=== PATIENT | female | born 1980 | race Caucasian/White ===

== ENCOUNTER 2017-08-07 17:55 | Emergency (ER) | payer OTHER ==
[2017-08-07 18:00] VITALS: TEMP 97.9
--- NOTE | 2017-08-07 18:14 | EDPHY ---
H & P Stated Complaint: LLQ x1 hr Time Seen by Provider: 08/07/17 18:11 HPI/ROS: HPI: This is a 37-year-old female who presents with Chief Complaint: Periumbilical and left lower quadrant pain Location: Periumbilical and left lower quadrant Quality: pain Duration: 1 hour Signs and Symptoms: no fever, no nausea, no vomiting, no hematemesis, no blood in stool, no abdominal bloating, no diarrhea, no back pain, no urinary symptoms , no vaginal bleeding/discharge, no indigestion, no chest pain, no shortness of breath Timing: Sudden, improving Severity: Moderate Context: Patient's last menstrual period was 2-3 weeks ago presents with left of her umbilicus that is nonradiating in nature. Patient reports that she had similar discomfort but was in the left lower quadrant approximately a month ago. She was seen by her OBGYN in a pelvic ultrasound was ordered and per patient it was unremarkable. She denies any fever/urinary symptoms/nausea/ vomiting/diarrhea. She had denies any recent exercise, injury. She was simply standing in her kitchen making dinner when the pain started. She reports that the pain at lasted approximately 1 hr and she has no discomfort upon arrival to the emergency room. She was eating and drinking normally today. Modifying Factors: None Comment: ROS: see HPI Constitutional: No fever, no chills, no weight loss Eyes: No blurred vision Respiratory: No shortness of breath, no cough Cardiovascular: No chest pain, no palpitations Gastrointestinal: No nausea, no vomiting, no diarrhea, no hematemesis, no blood in stool Genitourinary: No dysuria, no blood in urine Extremities: No myalgias, no edema Neurologic: No weakness, no numbness Skin: No rashes, no petechiae Hematologic: No bruising, no bleeding MEDICAL/SURGICAL/SOCIAL HISTORY: Medical/surgical history: 2 toe surgeries 2013 & 2014, no problems w/ anesthesia, high cholersterol Social history: CONSTITUTIONAL: Extremely well-appearing adult white female, nontoxic, awake and alert, no obvious distress HEENT: Atraumatic and normocephalic, PERRL, EOMI. Tympanic membranes clear. Oropharynx clear, no exudate and moist pink mucosa. Airway patent. No lymphadenopathy. No meningismus. Cardiovascular: Normal S1/S2, regular rate, regular rhythm, without murmur rub or gallop. PULMONARY/CHEST: Symmetrical and nontender. Clear to auscultation bilaterally. Good air movement. No accessory muscle usage. ABDOMEN: Soft, nondistended, mild to the left of the umbilicus reproducible tenderness, no rebound, no guarding, no peritoneal signs, no masses or organomegaly. No CVAT. No pulsatile masses appreciated. EXTREMITIES: 2/2 pulses, strength 5/5, no deformities, no clubbing, no cyanosis or edema. NEUROLOGICAL: no focal neuro deficits. GCS 15. SKIN: Warm and dry, no erythema. no rash. Good capillary refill. Source: Patient Exam Limitations: No limitations - Personal History LMP (Females 10-55): 15-21 Days Ago Current Tetanus/Diphtheria Vaccine: Yes Current Tetanus Diphtheria and Acellular Pertussis (TDAP): Yes Tetanus Vaccine Date: WITHIN 10 YRS - Medical/Surgical History Hx Asthma: No Hx Chronic Respiratory Disease: No Hx Diabetes: No Hx Cardiac Disease: No Hx Renal Disease: No Hx Cirrhosis: No Hx Alcoholism: No Hx HIV/AIDS: No Hx Splenectomy or Spleen Trauma: No Other PMH: 2 toe surgeries 2012 & 2013, no problems w/ anesthesia, high cholersterol - Social History Smoking Status: Former smoker Constitutional: Initial Vital Signs Temperature (C) 36.6 C 08/07/17 17:57 Heart Rate 83 08/07/17 17:57 Respiratory Rate 18 08/07/17 17:57 Blood Pressure 138/81 H 08/07/17 17:57 O2 Sat (%) 99 08/07/17 17:57 Allergies/Adverse Reactions: iodine [Iodine] Allergy (Unknown, Verified 01/06/13 16:34) ITCHY ENVIRONMENTAL Allergy (Mild, Uncoded 01/06/13 16:34) RUNNY NOSE Home Medications: Medication Instructions Recorded Adderall 10 mg Tablet 5 - 10 mg PO PRN 07/03/16 Fish Oil 4 cap PO DAILY 07/03/16 1 tab PO DAILY 07/03/16 Probiotic 1 cap PO DAILY 07/03/16 Zantac 75 mg PO PRN 07/03/16 Ibuprofen [Motrin (*)] 600 mg PO Q6HRS PRN #0 tab 07/05/16 Simethicone [Gas Relief] 180 mg PO Q6 PRN #12 capsule 08/07/17 Medical Decision Making - Diagnostics Imaging Results: Imaging Impressions Abdomen CT 08/07/17 18:09 Impression: 1. Focal calcification involve the posterior aspect of the right common iliac artery suggesting early atherosclerosis versus prior trauma. 2. Otherwise normal CT appearance of the abdomen and pelvis without evidence of appendicitis, diverticulitis, peritoneal free fluid. Results called to Concepcion Garcia PA-C, at 7:15 PM. ED Course/Re-evaluation: Labs, urinalysis, CT abdomen and pelvis scan ordered Per patient she had a pelvic ultrasound approximately 1 month ago from her her OBGYN and she politely declines repeating this test in the emergency room. Vital signs reviewed upon arrival and within normal limits. Patient currently denies pain. 185: Labs reviewed and grossly unremarkable. Urinalysis shows no signs of infection/hematuria. Called by radiologist who advised that CT abdomen and pelvis scan shows no signs of appendicitis, diverticulitis, obstruction, pancreatitis, pyelonephritis. Does show some calcification in the right iliac artery that the patient needs to be notified of and I did. Patient reports that she is supposed to be taking a statin due to her family history of coronary artery disease. She stopped taking it when she was with her daughter who is now 1 years old. Given simethicone with adequate relief. This patient was seen under the supervision of my primary supervising physician. I evaluated care for this patient independently. Differential Diagnosis: Abdominal pain including but not limited to appendicitis, cholecystitis, diverticulitis, ovarian cyst, ovarian torsion, gastritis and urinary tract infection. - Data Points Laboratory Results: Laboratory Results 08/07/17 18:15 08/07/17 18:15 08/07/17 08/07/17 08/07/17 18:25 18:15 18:15 WBC RBC Hgb Hct MCV MCH MCHC RDW Plt Count MPV Neut % (Auto) Lymph % (Auto) [place] % (Auto) Eos % (Auto) Baso % (Auto) Nucleat RBC Rel Count Absolute Neuts (auto) Absolute Lymphs (auto) Absolute Monos (auto) Absolute Eos (auto) Absolute Basos (auto) Absolute Nucleated RBC Immature Gran % Immature Gran # Sodium 141 mEq/L mEq/L (135-145) Potassium 3.9 mEq/L mEq/L (3.5-5.2) Chloride 102 mEq/L mEq/L (97-110) Carbon Dioxide 24 mEq/l mEq/l (22-31) Anion Gap 15 mEq/L mEq/L (8-16) BUN 12 mg/dL mg/dL (7-23) Creatinine 0.7 mg/dL mg/dL (0.6-1.0) Estimated GFR > 60 Glucose 85 mg/dL mg/dL (70-100) Calcium 9.9 mg/dL mg/dL (8.5-10.4) Total Bilirubin 0.3 mg/dL mg/dL (0.1-1.4) Conjugated Bilirubin 0.2 mg/dL mg/dL (0.0-0.5) Unconjugated Bilirubin 0.1 mg/dL mg/dL (0.0-1.1) AST 20 IU/L IU/L (14-46) ALT 28 IU/L IU/L (9-52) Alkaline Phosphatase 81 IU/L IU/L (38-126) Total Protein 7.0 g/dL g/dL (6.3-8.2) Albumin 4.5 g/dL g/dL (3.5-5.0) Lipase 84 IU/L IU/L (23-300) Beta HCG, Qual NEGATIVE Urine Color YELLOW Urine Appearance CLEAR Urine pH 6.0 (5.0-7.5) Ur Specific [place] 1.005 (1.002-1.030) Urine Protein NEGATIVE (NEGATIVE) Urine Ketones TRACE H (NEGATIVE) Urine Blood NEGATIVE (NEGATIVE) Urine Nitrate NEGATIVE (NEGATIVE) Urine Bilirubin NEGATIVE (NEGATIVE) Urine Urobilinogen NEGATIVE EU EU (0.2-1.0) Ur Leukocyte Esterase NEGATIVE (NEGATIVE) Urine Glucose NEGATIVE (NEGATIVE) 08/07/17 18:15 WBC 5.64 10^3/uL 10^3/uL (3.80-9.50) RBC 4.07 10^6/uL L 10^6/uL (4.18-5.33) Hgb 13.5 g/dL g/dL (12.6-16.3) Hct 38.7 % % (38.0-47.0) MCV 95.1 fL fL (81.5-99.8) MCH 33.2 pg pg (27.9-34.1) MCHC 34.9 g/dL g/dL (32.4-36.7) RDW 12.4 % % (11.5-15.2) Plt Count 235 10^3/uL 10^3/uL (150-400) MPV 9.3 fL fL (8.7-11.7) Neut % (Auto) 59.4 % % (39.3-74.2) Lymph % (Auto) 34.8 % % (15.0-45.0) [place] % (Auto) 4.1 % L % (4.5-13.0) Eos % (Auto) 0.4 % L % (0.6-7.6) Baso % (Auto) 1.1 % % (0.3-1.7) Nucleat RBC Rel Count 0.0 % % (0.0-0.2) Absolute Neuts (auto) 3.36 10^3/uL 10^3/uL (1.70-6.50) Absolute Lymphs (auto) 1.96 10^3/uL 10^3/uL (1.00-3.00) Absolute Monos (auto) 0.23 10^3/uL L 10^3/uL (0.30-0.80) Absolute Eos (auto) 0.02 10^3/uL L 10^3/uL (0.03-0.40) Absolute Basos (auto) 0.06 10^3/uL 10^3/uL (0.02-0.10) Absolute Nucleated RBC 0.00 10^3/uL 10^3/uL (0-0.01) Immature Gran % 0.2 % % (0.0-1.1) Immature Gran # 0.01 10^3/uL 10^3/uL (0.00-0.10) Sodium Potassium Chloride Carbon Dioxide Anion Gap BUN Creatinine Estimated GFR Glucose Calcium Total Bilirubin Conjugated Bilirubin Unconjugated Bilirubin AST ALT Alkaline Phosphatase Total Protein Albumin Lipase Beta HCG, Qual Urine Color Urine Appearance Urine pH Ur Specific [place] Urine Protein Urine Ketones Urine Blood Urine Nitrate Urine Bilirubin Urine Urobilinogen Ur Leukocyte Esterase Urine Glucose Departure - Departure Disposition: Home, Routine, Self-Care Clinical Impression: Abdominal gas pain, Atherosclerosis of right iliac artery Condition: Good Instructions: Gas and Bloating (ED), Carotid Artery Disease (DC), Low Fat Diet (ED) Additional Instructions: Take Simethicone/Mylicon as needed for gas pain. Your right iliac artery show some mild calcification consistent with atherosclerosis. Please start taking your statin again due to your family history. Referrals: Rachana Vasquez MD [Primary Care Provider] - As per Instructions Prescriptions: Simethicone [Gas Relief] 180 mg PO Q6 PRN #12 capsule PRN Reason: Gas
[2017-08-07 18:30] LABS: PLATELET COUNT 235 10^3/uL (150-400)
[2017-08-07] MEDS ORDERED: IOPAMIDOL (ISOVUE-300) 100 ML BTL ONE (18:48)
[2017-08-07] MEDS ORDERED: SIMETHICONE 80 MG TAB CHEW PO ONE (19:30)
[2017-08-07 19:48] VITALS: BP 118/85; PULSE 72; RESP 16; O2SAT 95
== END 2017-08-07 19:49 | disposition home or self-care (01) ==
DX: R14.1 Gas pain (principal); I70.8 Atherosclerosis of other arteries; Z87.891 Personal history of nicotine dependence
CPT/HCPCS: Q9967

== ENCOUNTER → 2018-03-16 | Outpatient (CLI) | payer OTHER | LOC: FIMAGING 08:50 | PROVIDERS: ATTEND Hospitalist | DX: O09.522 Supervision of elderly multigravida, second trimester (principal); O99.280 Endocrine, nutritional and metabolic diseases complicating pregnancy, unspecified trimester; Z3A.14 14 weeks gestation of pregnancy ==

== ENCOUNTER → 2018-05-10 | Outpatient (CLI) | payer OTHER | LOC: FIMAGING 09:26 | PROVIDERS: ATTEND Hospitalist | DX: O09.522 Supervision of elderly multigravida, second trimester (principal); Z3A.20 20 weeks gestation of pregnancy ==

== ENCOUNTER 2018-09-17 09:00 | Inpatient (IN) | payer OTHER ==
[2018-09-20] MEDS ORDERED: OLIVE OIL 118 ML BTL MISC PRN (06:44)
[2018-09-20] MEDS ORDERED: EPSOM SALT 454 GM TP PRN (06:44)
[2018-09-20] MEDS ORDERED: OXYTOCIN/RINGERS LACTATE 1,000 ML IV PRN (06:44)
[2018-09-20] MEDS ORDERED: IBUPROFEN 600 MG TAB PO PRN (06:44)
[2018-09-20] MEDS ORDERED: LIDOCAINE 1% 300 MG/30 ML SDV SC PRN (06:44)
[2018-09-20] MEDS ORDERED: MISOPROSTOL 200 MCG TAB PR PRN (06:44)
[2018-09-20] MEDS ORDERED: PENICILLIN G POTASSIUM 5,000,000 UNIT in D5W 150 ML IV ONE ×2 (06:44→08:15)
[2018-09-20 07:22] LABS: PLATELET COUNT 172 10^3/uL (150-400)
[2018-09-20] MEDS ORDERED: LR 500 ML IV PRN (07:45)
[2018-09-20] MEDS ORDERED: OXYTOCIN/RINGERS LACTATE 500 ML IV SCH (08:00)
[2018-09-20] MEDS: LR 1,000 ML IV PRN (08:39)
--- NOTE | 2018-09-20 09:02 | GHP ---
[f rep st] HISTORY AND PHYSICAL DATE OF ADMISSION: 09/20/2018 ADMITTING DIAGNOSES: 1. Intrauterine at 39 weeks and 3 days. 2. Elective induction of labor. HISTORY OF PRESENT ILLNESS: The patient is a 38-year-old 3, para 1-0-1- 1 with an estimated due date 09/24/2018 per ultrasound at 6 weeks. The patient presents for an elective induction of labor and states she is having irregular contractions. Denies any leakage of fluid or vaginal bleeding and states good movement is noted. There has been a question of an unstable lie over the past few weeks with increased amniotic fluid. The patient was examined at 38 weeks and found to be 2cm, 80%, -2, and ballotable. The patient has good care at [facility], [place] and presented in her first trimester. is complicated by advanced maternal age with negative NIPT. A level 2 scan with MFM was normal. The patient has a history of familial hypercholesterolemia and saw [facility] in August 2017.; she had an EKG which was negative for ischemia; an echo was unremarkable; left ventricular ejection fraction was 60% to 70% percent; stress echocardiogram was unremarkable. Patient has no history of cardiac catheterization and atherosclerosis diagnosis by positive calcium score. The patient has a history of a thyroid nodule and was seen by Endo February 2018. Nodule appeared slightly larger on followup ultrasound and ultrasound surveillance was done by Endo. First trimester TSH was low at 0.3, consistent with a first-trimester and repeat TSH in second trimester was 0.58. The patient has a history of a LEEP, and a term delivery after LEEP. The patient developed anemia of , and tolerating iron. She had a growth ultrasound done at 32 weeks, with an estimated weight in 72nd percentile and upper normal PREM of 20.5. GBS culture is positive. Patient did receive flu vaccine as well as Tdap. PAST OBSTETRIC HISTORY: In 06/2016, she had a viable female infant born at 40 weeks, via uncomplicated vaginal delivery, weighing 6 pounds 5 ounces; she was induced and pushed for 3 hours. In December 2017, she had an SAB at 7-1/2 weeks. PAST GYNECOLOGIC HISTORY: Age of menarche 12. Cycles are irregular. She conceived during her first cycle after SAB; unknown LMP. The patient has a history of abnormal Pap smears and had a LEEP in 2006 secondary to KHADIJAH II. Subsequent Pap smears have been normal. The patient denies a history of exposure to any sexually transmitted diseases. CURRENT MEDICATIONS: Include vitamins, vitamin B complex, fish oil, probiotics, iron. ALLERGIES: Iodine, rash. PAST MEDICAL HISTORY: Cervical dysplasia, hypercholesterolemia diagnosed 18 years of age, thyroid nodule diagnosed in 2013, GERD, history of urinary tract infections, migraine headaches, anxiety, depression, and ADD. SURGICAL HISTORY: Right big toe surgery x2, dental implants, and wisdom teeth extraction. FAMILY HISTORY: Mother: Triple bypass at 38 years of age and anxiety. Father : Stent placement secondary to cardiac disease, type 2 diabetes and renal cancer. Maternal grandmother: Dementia, Alzheimer's. Paternal grandfather: Lung cancer secondary to smoking. Brother: Skin cancer, melanoma. SOCIAL HISTORY: Patient is and lives with her and their daughter. She is a homemaker. She is a former smoker and discontinued tobacco in 2011, but she smoked from 16 years of age to 31 years of age, a half pack per day. Denies any alcohol, tobacco or illicit drug use currently. REVIEW OF SYSTEMS: Ten-point review of systems negative. Pertinent positives noted in the HPI. LABS: First trimester H and H, 13.8 and 39.5, platelets 271. Blood type O positive, antibody negative. RPR nonreactive. Rubella immune. Hepatitis B surface antigen negative. HIV negative. Trio screen negative in . Standard panel negative. First trimester TSH 0.30, free T4 0.93. Second trimester TSH 0.58, free T4 0.76. Urine culture and UA negative. Pap smear negative with negative HPV 08/21/2017. Gonorrhea and chlamydia cultures negative 02/23/2018. Single AFP negative. Innatal screen negative. Third trimester H and H, 12.12 and 35, platelets 199. One-hour Glucola 107. GBS is positive. Varicella immune. Parvovirus is nonimmune. PHYSICAL EXAMINATION: VITAL SIGNS: On admission, vital signs are stable. Patient is afebrile at 36.6, heart rate 103, respirations 16, blood pressure 118 /80. GENERAL: Patient is a well nourished, well developed female. Alert and oriented x3. No apparent distress. SKIN: War, dry and without rash. NEUROLOGIC: Grossly intact. CARDIOVASCULAR: Regular rate and rhythm. LUNGS: Clear to auscultation bilaterally. ABDOMEN: Gravid, soft, nontender. PELVIC EXAM: 2 cm dilated, 70%, -3, ballotable, intact. EXTREMITIES: Normal to inspection without calf tenderness or edema. Bedside ultrasound confirms cephalic presentation. heart tones: Category 1 tracing with baseline 130 beats per minute. Positive accelerations. No decelerations. Moderate variability. On [place], no contractions noted. ASSESSMENT AND PLAN: The patient is a 38-year-old, 3, para 1-0-1-1 at 39 weeks 3 days for an elective induction. 1. Admit to Labor and Delivery. 2. Will start Pitocin per protocol since favorable cervix. 3. GBS is positive, will start penicillin for GBS prophylaxis. 4. Patient desires an epidural for pain control. 5. Anticipate . /[id number]/MODL MTDD
[2018-09-20] MEDS ORDERED: PENICILLIN G POTASSIUM 2,500,000 UNIT in D5W 150 ML IV SCH (10:45)
--- NOTE | 2018-09-20 12:51 | OBPROG ---
Labor Progress Note Assessment/Plan: Assessment: 38 y/o @ 39 3/7 weeks for elective IOL GBS pos. Plan: Continue current management Pitocin at 14 mu/min, cont per protocol s/p first dose PCN at 0930; next dose due at 1330 No cervical exam done at this time Not picking up ctx's on toco, but pt states more painful at this time FHTs - Cat I tracing Will reassess in a few hours and attempt AROM and placement of IUPC Pt desires an epidural for pain control 09/20/18 12:58 Subjective/Intrapartum Course: 09/20/18 12:51 Pt is eating lunch. She states ctx's are more painful. Denies any LOF. Good FM noted. Objective: 09/20/18 06:40 Patient ABO/Rh O POSITIVE 09/20/18 06:40 - Contraction Pattern Assessment Current Contraction Pattern: Irregular (not really picking up any ctx's) - FHR Assessment Twin A FHR (bpm): 130 FHR Pattern Variability: Moderate FHR Category: 1 - AP Antepartum Course: 09/20/18 12:53 AMA with neg NIPT and normal Level II u/s High cholesterol and familial atherosclerosis - off statin now x 2.5 years; negative Cardio work-up with EKG, stress echo-avoid fluid overload and extremes in BP KHADIJAH II - s/p LEEP Thyroid nodule-followed by Endo with u/s surveillance GERD Anxiety/Depression/ADD - no meds GBS positive Oxytocin Orders Assessment - Pre-Induction/Augmentation Assessment Gestational Age: 39 week(s) and 3 day(s) ICD10 Worksheet Patient Problems: Problems Problem Status Onset term induction Acute
[2018-09-20] MEDS: PENICILLIN G POTASSIUM 2,500,000 UNIT in D5W 150 ML IV SCH ×2 (13:48→17:40)
[2018-09-20] MEDS ORDERED: LIDOCAINE 1% 300 MG/30 ML SDV ONE (13:59)
[2018-09-20] MEDS ORDERED: OLIVE OIL 118 ML BTL MISC ONE (14:00)
[2018-09-20] MEDS ORDERED: MISOPROSTOL 200 MCG TAB ONE (14:00)
[2018-09-20] MEDS ORDERED: TERBUTALINE SULFATE 1 MG/ML VIAL ONE (14:00)
[2018-09-20] MEDS ORDERED: AMMONIA AROMATIC 1 EACH AMP IH ONE (14:00)
[2018-09-20] MEDS ORDERED: OXYTOCIN 10 UNIT/ML VIAL ONE (14:00)
--- NOTE | 2018-09-20 15:58 | OBPROG ---
Labor Progress Note Assessment/Plan: Assessment: 38 y/o @ 39 3/7 weeks for elective IOL GBS pos Plan: Continue current management Pitocin at 20 mu/min at this time, will increase if ctx's space out s/p 2 doses of PCN SVE: 2/80/-3, head is ballotable; unable to AROM at this time On toco, ctx's q 2-3min, they palpate mod FHTs - Cat I tracing Recommend pt continue to ambulate Will reassess in a few hours 09/20/18 15:59 Subjective/Intrapartum Course: 09/20/18 12:51 Pt is eating lunch. She states ctx's are more painful. Denies any LOF. Good FM noted. 09/20/18 16:00 Pt has been up ambulating and states ctx's are getting more painful-she is breathing through them. Objective: 09/20/18 06:40 Patient ABO/Rh O POSITIVE 09/20/18 06:40 - SVE Dilation (cm): 2 Effacement (%): 80 Station: -3 - Contraction Pattern Assessment Current Contraction Pattern: Regular (q 2-3 min) - FHR Assessment Goode FHR (bpm): 130 FHR Pattern Variability: Moderate FHR Category: 1 - AP Antepartum Course: 09/20/18 12:53 AMA with neg NIPT and normal Level II u/s High cholesterol and familial atherosclerosis - off statin now x 2.5 years; negative Cardio work-up with EKG, stress echo-avoid fluid overload and extremes in BP KHADIJAH II - s/p LEEP Thyroid nodule-followed by Endo with u/s surveillance GERD Anxiety/Depression/ADD - no meds GBS positive Oxytocin Orders Assessment - Pre-Induction/Augmentation Assessment Gestational Age: 39 week(s) and 3 day(s) ICD10 Worksheet Patient Problems: Problems Problem Status Onset Encounter for elective induction of labor Acute term induction Acute - ICD10 Problem Qualifiers (1) Encounter for elective induction of labor
--- NOTE | 2018-09-20 19:36 | OBPROG ---
Labor Progress Note Assessment/Plan: Assessment: 38 y/o @ 39 3/7 weeks for elective IOL GBS pos Plan: Pitocin is at 22 mu/min at this time with no cervical change noted all day long Unable to AROM since head is still ballotable s/p 3 doses of PCN FHTs - Cat I tracing and reassuring Had a long discussion with pt and spouse regarding options of turning off the Pitocin and having her sleep over night and restarting Pitocin in the morning versus discharge home since elective IOL but risk of cord prolapse with SROM Do not recommend continuing with Pitocin at this time secondary to increase risk of PCS Will turn off Pitocin for now and d/c PCN NST prior to bed Plan to restart Pitocin in am at 0600 as well as PCN for GBS prophylaxis 09/20/18 19:29 Subjective/Intrapartum Course: 09/20/18 12:51 Pt is eating lunch. She states ctx's are more painful. Denies any LOF. Good FM noted. 09/20/18 16:00 Pt has been up ambulating and states ctx's are getting more painful-she is breathing through them. 09/20/18 19:36 Pt states ctx's were painful about an hour ago and now are barely there. Denies any LOF. Good FM noted. They have the kit for cord blood collection in the room. Objective: 09/20/18 06:40 Patient ABO/Rh O POSITIVE 09/20/18 06:40 - SVE Dilation (cm): 2 Effacement (%): 80 Station: -3 Membranes: Intact - Contraction Pattern Assessment Current Contraction Pattern: Regular (q 2-3 min) - FHR Assessment Goode FHR (bpm): 140 FHR Pattern Variability: Moderate FHR Category: 1 - AP Antepartum Course: 09/20/18 12:53 AMA with neg NIPT and normal Level II u/s High cholesterol and familial atherosclerosis - off statin now x 2.5 years; negative Cardio work-up with EKG, stress echo-avoid fluid overload and extremes in BP KHADIJAH II - s/p LEEP Thyroid nodule-followed by Endo with u/s surveillance GERD Anxiety/Depression/ADD - no meds GBS positive Oxytocin Orders Assessment - Pre-Induction/Augmentation Assessment Gestational Age: 39 week(s) and 3 day(s) ICD10 Worksheet Patient Problems: Problems Problem Status Onset Encounter for elective induction of labor Acute term induction Acute - ICD10 Problem Qualifiers (1) Encounter for elective induction of labor
[2018-09-20] MEDS ORDERED: diphenhydrAMINE 25 MG CAP PO PRN (21:34)
--- NOTE | 2018-09-20 21:39 | OBPROG ---
Labor Progress Note Assessment/Plan: Assessment: 38 y/o @ 39 3/7 weeks for elective IOL GBS pos Plan: Pt is no longer having any ctx's since Pitocin turned off Long discussion with pt that since she is going to be here overnight, recommend further ripening with Cytotec so as to help with dilation when Pitocin is started in the morning; pt agrees with the plan Continuous EFM Will give Benadryl to help with sleep If she becomes active, will start PCN for GBS prophylaxis 09/20/18 21:35 Subjective/Intrapartum Course: 09/20/18 12:51 Pt is eating lunch. She states ctx's are more painful. Denies any LOF. Good FM noted. 09/20/18 16:00 Pt has been up ambulating and states ctx's are getting more painful-she is breathing through them. 09/20/18 19:36 Pt states ctx's were painful about an hour ago and now are barely there. Denies any LOF. Good FM noted. They have the kit for cord blood collection in the room. 09/20/18 21:37 Pt is no longer feeling any ctx's. Objective: 09/20/18 06:40 Patient ABO/Rh O POSITIVE 09/20/18 06:40 - SVE Membranes: Intact - AP Antepartum Course: 09/20/18 12:53 AMA with neg NIPT and normal Level II u/s High cholesterol and familial atherosclerosis - off statin now x 2.5 years; negative Cardio work-up with EKG, stress echo-avoid fluid overload and extremes in BP KHADIJAH II - s/p LEEP Thyroid nodule-followed by Endo with u/s surveillance GERD Anxiety/Depression/ADD - no meds GBS positive Oxytocin Orders Assessment - Pre-Induction/Augmentation Assessment Gestational Age: 39 week(s) and 3 day(s) ICD10 Worksheet Patient Problems: Problems Problem Status Onset Encounter for elective induction of labor Acute term induction Acute - ICD10 Problem Qualifiers (1) Encounter for elective induction of labor
[2018-09-20] MEDS: MISOPROSTOL 25 MCG CAP PO SCH (21:59)
[2018-09-21] MEDS: MISOPROSTOL 25 MCG CAP PO SCH ×2 (04:21→08:32)
--- NOTE | 2018-09-21 08:34 | OBPROG ---
Labor Progress Note Assessment/Plan: Assumed care from Dr. Guidry at 0700. Assessment:38 at 39w4d, has been here for elective IOL - had pitocin for about 12 hours, then 2 doses of misoprostil overnight, with no cervical change. Recommended considering stopping the process and going home and coming back in spontaneous labor, or attempting the induction process again in a few days or a week. Discussed if not ready to go into labor, could be increasing risk for section. Plan: Pt and discussed, and pt would like to proceed with attempting induction. Callision transcervical balloon catheter placed digitally, with sterile gloves. 70ml in uterine balloon and 20 ml in vaginal balloon. Pt tolerated well. Will start pitocin as discussed. Parul Porter MD, [facility] 09/21/18 08:17 Subjective/Intrapartum Course: 09/20/18 12:51 Pt is eating lunch. She states ctx's are more painful. Denies any LOF. Good FM noted. 09/20/18 16:00 Pt has been up ambulating and states ctx's are getting more painful-she is breathing through them. 09/20/18 19:36 Pt states ctx's were painful about an hour ago and now are barely there. Denies any LOF. Good FM noted. They have the kit for cord blood collection in the room. 09/20/18 21:37 Pt is no longer feeling any ctx's. 09/21/18 08:34 Pt slept overnight, did not feel contractions despite bein given misoprostil x 2. No LOF. Good FM. Objective: 09/20/18 06:40 Patient ABO/Rh O POSITIVE 09/20/18 06:40 36.3 16 80 110/61 gen - pleasant, NAD abd - soft, gravid, NT US done - cephalic, currently DESTINEY, MVP = 8.23 SVE 2 / 70 / ballotable - SVE Dilation (cm): 2 Effacement (%): 75 Station: -3 (ballotable) Membranes: Intact - Contraction Pattern Assessment Current Contraction Pattern: Regular (q 2-3 min), Other (Specify) (no contractions) - FHR Assessment Goode FHR (bpm): 125 FHR Pattern Variability: Moderate FHR Category: 1 - Procedures Non-surgical Procedures: Other (Specify) (transcervical Cook Balloon catheter placed, 70mlU, 20 ml v) - AP Antepartum Course: 09/20/18 12:53 AMA with neg NIPT and normal Level II u/s High cholesterol and familial atherosclerosis - off statin now x 2.5 years; negative Cardio work-up with EKG, stress echo-avoid fluid overload and extremes in BP KHADIJAH II - s/p LEEP Thyroid nodule-followed by Endo with u/s surveillance GERD Anxiety/Depression/ADD - no meds GBS positive Oxytocin Orders Assessment - Pre-Induction/Augmentation Assessment Gestational Age: 39 week(s) and 3 day(s) ICD10 Worksheet Patient Problems: Problems Problem Status Onset Encounter for elective induction of labor Acute term induction Acute
[2018-09-21] MEDS: LR 1,000 ML IV PRN (08:41)
[2018-09-21] MEDS: PENICILLIN G POTASSIUM 2,500,000 UNIT in D5W 150 ML IV SCH ×4 (08:42→20:31)
[2018-09-21] MEDS ORDERED: fentaNYL 100 MCG/2 ML INJ ONE (13:35)
[2018-09-21] MEDS ORDERED: fentaNYL 2MCG/ML/BUP 0.1% RTU 100 ML BAG EP ONE (13:36)
[2018-09-21] MEDS ORDERED: PHENYLEPHRINE HCL 100 MCG/ML SYR ONE (13:37)
--- NOTE | 2018-09-21 13:38 | OBPROG ---
Labor Progress Note Assessment/Plan: Assumed care from Dr. Guidry at 0700. Assessment:38 at 39w4d, has been here for elective IOL - had pitocin for about 12 hours, then 2 doses of misoprostil overnight, with no cervical change. Recommended considering stopping the process and going home and coming back in spontaneous labor, or attempting the induction process again in a few days or a week. REviewed upper limits of normal amniotic fluid by both PREM and MVP. Discussed if not ready to go into labor, could be increasing risk for section. Plan: Pt and discussed, and pt would like to proceed with attempting induction. [employer] transcervical balloon catheter placed digitally, with sterile gloves. 70ml in uterine balloon and 20 ml in vaginal balloon. Pt tolerated well. Will start pitocin as discussed. Parul Porter MD, [facility] 09/21/18 08:17 A/P: 38 at 39w4d, undergoing elective IOL, requesting epidural due to pain with contractions. Adequate contraction pattern with pitocin at 7miu/hr. Unable to remove uterine balloon intact - will leave in place for now and recheck after epidural in place. Parul Porter MD, [facility] 09/21/18 13:37 Subjective/Intrapartum Course: 09/20/18 12:51 Pt is eating lunch. She states ctx's are more painful. Denies any LOF. Good FM noted. 09/20/18 16:00 Pt has been up ambulating and states ctx's are getting more painful-she is breathing through them. 09/20/18 19:36 Pt states ctx's were painful about an hour ago and now are barely there. Denies any LOF. Good FM noted. They have the kit for cord blood collection in the room. 09/20/18 21:37 Pt is no longer feeling any ctx's. 09/21/18 08:34 Pt slept overnight, did not feel contractions despite bein given misoprostil x 2. No LOF. Good FM. 09/21/18 13:40 Pt is quite uncomfortable now with contractions, requesting an epidural. No LOF , though has been having some bloody show. Objective: 09/20/18 06:40 Patient ABO/Rh O POSITIVE 09/20/18 06:40 - SVE Dilation (cm): 3 Effacement (%): 75 Station: -3 Membranes: Intact - Contraction Pattern Assessment Current Contraction Pattern: Regular (q 2-3 min) - Procedures Non-surgical Procedures: Other (Specify) (transcervical Cook Balloon catheter placed, 70mlU, 20 ml v) - AP Antepartum Course: 09/20/18 12:53 AMA with neg NIPT and normal Level II u/s High cholesterol and familial atherosclerosis - off statin now x 2.5 years; negative Cardio work-up with EKG, stress echo-avoid fluid overload and extremes in BP KHADIJAH II - s/p LEEP Thyroid nodule-followed by Endo with u/s surveillance GERD Anxiety/Depression/ADD - no meds GBS positive Oxytocin Orders Assessment - Pre-Induction/Augmentation Assessment Indication: induction of labor Presentation: Vertex, Right Occiput Anterior Gestational Age: 39 week(s) and 3 day(s) Gestational Age Determined By: Last Menstral Period Estimated Weight: 4307-2203 Membrane Status: Intact Current Sterile Vaginal Exam (SVE): /ballotable Current Contraction Pattern: Regular - Cornejo's Score Dilation: 3-4cm Effacement: 80+ Station: -3 Cervix: Medium Cervix Position: Anterior Cornejo Score Total: 8 - Induction/Augmentation Consent Risks/Benefits of Procedure Reviewed/Pt Agrees to Proceed: Yes ICD10 Worksheet Patient Problems: Problems Problem Status Onset Encounter for elective induction of labor Acute term induction Acute
[2018-09-21] MEDS ORDERED: PHENYLEPHRINE HCL 100 MCG/ML SYR IVP PRN (14:01)
[2018-09-21] MEDS ORDERED: NALOXONE HCL 0.4 MG/ML INJ IVP PRN (14:01)
--- NOTE | 2018-09-21 14:04 | PDANEPAE ---
ANE History of Present Illness 38 year old in active labor ANE Past Medical History - Pulmonary History Hx Oxygen in Use at Home: No Hx Sleep Apnea: No - Endocrine History Hx Diabetes: No - Chronic Pain History Chronic Pain: No ANE Review of Systems Review of systems is: negative Review of Systems: ANE Patient History - Allergies Allergies/Adverse Reactions: iodine [Iodine] Allergy (Unknown, Verified 01/06/13 16:34) ITCHY ENVIRONMENTAL Allergy (Mild, Uncoded 01/06/13 16:34) RUNNY NOSE - Home Medications Home medications: home medication list seen and reviewed Home Medications: Adderall 10 mg Tablet 5 - 10 mg PO PRN 07/03/16 [Last Taken 06/27/16 07:00] Fish Oil 4 cap PO DAILY 07/03/16 [Last Taken 07/02/16] 1 tab PO DAILY 07/03/16 [Last Taken 07/02/16] Probiotic 1 cap PO DAILY 07/03/16 [Last Taken 07/02/16] Zantac 75 mg PO PRN 07/03/16 [Last Taken 07/02/16] - Anes Hx Anes Hx: no prior problems - Smoking Hx Smoking Status: Former smoker ANE Labs/Vital Signs - Labs Result Diagrams: 09/20/18 06:40 - Vital Signs Height: 165.1 cm Weight: 81.647 kg ANE Physical Exam - Airway Neck exam: FROM Mallampati Score: Class 1 Mouth exam: normal dental/mouth exam - Pulmonary Pulmonary: no respiratory distress - Cardiovascular Cardiovascular: regular rate and rhythym - ASA Status ASA Status: II ANE Anesthesia Plan Anesthesia Plan: epidural
[2018-09-21] MEDS ORDERED: LR 500 ML IV SCH (14:30)
[2018-09-21] MEDS ORDERED: fentaNYL 2MCG/ML/BUP 0.1% RTU 100 ML EP SCH (14:30)
[2018-09-21] MEDS ORDERED: CALCIUM CARBONATE 500 MG CHEWABLE TAB PO ONE ×2 (19:00→22:00)
[2018-09-21] MEDS: ONDANSETRON 4 MG/2 ML VIAL IVP PRN (19:05)
--- NOTE | 2018-09-21 19:12 | OBPROG ---
Labor Progress Note Assessment/Plan: Assumed care from Dr. Guidry at 0700. Assessment:38 at 39w4d, has been here for elective IOL - had pitocin for about 12 hours, then 2 doses of misoprostil overnight, with no cervical change. Recommended considering stopping the process and going home and coming back in spontaneous labor, or attempting the induction process again in a few days or a week. REviewed upper limits of normal amniotic fluid by both PREM and MVP. Discussed if not ready to go into labor, could be increasing risk for section. Plan: Pt and discussed, and pt would like to proceed with attempting induction. [employer] transcervical balloon catheter placed digitally, with sterile gloves. 70ml in uterine balloon and 20 ml in vaginal balloon. Pt tolerated well. Will start pitocin as discussed. Parul Porter MD, [facility] 09/21/18 08:17 A/P: 38 at 39w4d, undergoing elective IOL, requesting epidural due to pain with contractions. Adequate contraction pattern with pitocin at 7miu/hr. Unable to remove uterine balloon intact - will leave in place for now and recheck after epidural in place. Parul Porter MD, [facility] 09/21/18 13:37 A/P: 38 at 39w4d, elective IOL, making progress now Epidural effective. GBS neg. AROM performed. Continue pitocin and anticipate vag delivery. Parul Porter MD, [facility] 09/21/18 19:09 Subjective/Intrapartum Course: 09/20/18 12:51 Pt is eating lunch. She states ctx's are more painful. Denies any LOF. Good FM noted. 09/20/18 16:00 Pt has been up ambulating and states ctx's are getting more painful-she is breathing through them. 09/20/18 19:36 Pt states ctx's were painful about an hour ago and now are barely there. Denies any LOF. Good FM noted. They have the kit for cord blood collection in the room. 09/20/18 21:37 Pt is no longer feeling any ctx's. 09/21/18 08:34 Pt slept overnight, did not feel contractions despite bein given misoprostil x 2. No LOF. Good FM. 09/21/18 13:40 Pt is quite uncomfortable now with contractions, requesting an epidural. No LOF , though has been having some bloody show. 09/21/18 19:10 Pt doing well - balloon catheter came out a few hours ago, noticing more bloody show. Comfortable with epidural. Objective: 09/20/18 06:40 Patient ABO/Rh O POSITIVE 09/20/18 06:40 gen - pleasant, resting comfortably. - SVE Dilation (cm): 7 Effacement (%): 100 Station: -2 Membranes: AROM (clear), Intact Amniotic Fluid Color: Clear - Contraction Pattern Assessment Current Contraction Pattern: Regular - FHR Assessment Goode FHR (bpm): 130 FHR Pattern Variability: Moderate FHR Category: 1 - Procedures Non-surgical Procedures: Amniotomy, Other (Specify) (transcervical Cook Balloon catheter placed, 70mlU, 20 ml v) - AP Antepartum Course: 09/20/18 12:53 AMA with neg NIPT and normal Level II u/s High cholesterol and familial atherosclerosis - off statin now x 2.5 years; negative Cardio work-up with EKG, stress echo-avoid fluid overload and extremes in BP KHADIJAH II - s/p LEEP Thyroid nodule-followed by Endo with u/s surveillance GERD Anxiety/Depression/ADD - no meds GBS positive - Physical Exam Estimated Weight: [id number] Oxytocin Orders Assessment - Pre-Induction/Augmentation Assessment Presentation: Vertex, Right Occiput Anterior Gestational Age: 39 week(s) and 3 day(s) Estimated Weight: 9713-7347 ICD10 Worksheet Patient Problems: Problems Problem Status Onset Encounter for elective induction of labor Acute term induction Acute
--- NOTE | 2018-09-21 23:27 | OBDEL ---
Info Type: Vaginal Presentation at Delivery: Vertex L&D Analgesia/Anesthesia Type: Epidural GBS+: No Intrapartum Medications: Generic Name Dose Route Start Last Admin Trade Name Skylar PRN Reason Stop Dose Admin Diphenhydramine HCl 25 mg 09/20/18 21:34 09/20/18 21:46 Benadryl PO 03/19/19 21:33 25 mg HS PRN Administration Sleep/Insomnia Oxytocin/Lactated Ringer's 500 mls @ 0 mls/hr 09/20/18 08:00 09/21/18 08:41 Pitocin 30 Units/Lr (Premix) IV 03/19/19 07:59 500 mls CONT SANDRA Administration Protocol Per Protocol Penicillin G Potassium 2,500, 155 mls @ 155 mls/hr 09/21/18 08:00 09/21/18 20 :31 000 unit/ Dextrose IV 10/21/18 07:59 155 mls Q4H SANDRA Administration Protocol Misoprostol 25 mcg 09/20/18 21:45 09/21/18 08:32 Cytotec PO 03/19/19 21:44 Not Given Q4H SANDRA Ondansetron HCl 4 mg 09/21/18 14:01 09/21/18 19:05 Zofran IVP 09/22/18 14:00 4 mg Q4HRS PRN Administration Nausea/Vomiting, Can't Take PO Discontinued Medications Generic Name Dose Route Start Last Admin Trade Name Skylar PRN Reason Stop Dose Admin Calcium Carbonate 1,000 mg 09/21/18 19:00 09/21/18 19:58 Tums PO 09/21/18 19:01 1,000 mg ONCE ONE Administration Calcium Carbonate 1,000 mg 09/21/18 22:00 09/21/18 22:04 Tums PO 09/21/18 22:01 1,000 mg ONCE ONE Administration Lactated Ringer's 1,000 mls @ 0 mls/hr 09/20/18 06:44 09/21/18 08:41 Lr IV 09/21/18 06:43 1,000 mls PRN PRN Administration SEE PROTOCOL CONDITIONS Protocol Per Protocol Penicillin G Potassium 5,000, 160 mls @ 160 mls/hr 09/20/18 06:44 09/20/18 09 :34 000 unit/ Dextrose IV 09/20/18 07:43 160 mls ONCE ONE Administration Protocol Penicillin G Potassium 2,500, 155 mls @ 155 mls/hr 09/20/18 12:17 09/20/18 17 :40 000 unit/ Dextrose IV 10/20/18 12:16 155 mls Q4H SANDRA Administration Protocol - Care Provider [employer]/HAND OR MACHINE PASTER: Silvina Zaman - Hospital Course Intrapartum: 09/20/18 12:51 Pt is eating lunch. She states ctx's are more painful. Denies any LOF. Good FM noted. 09/20/18 16:00 Pt has been up ambulating and states ctx's are getting more painful-she is breathing through them. 09/20/18 19:36 Pt states ctx's were painful about an hour ago and now are barely there. Denies any LOF. Good FM noted. They have the kit for cord blood collection in the room. 09/20/18 21:37 Pt is no longer feeling any ctx's. 09/21/18 08:34 Pt slept overnight, did not feel contractions despite bein given misoprostil x 2. No LOF. Good FM. 09/21/18 13:40 Pt is quite uncomfortable now with contractions, requesting an epidural. No LOF , though has been having some bloody show. 09/21/18 19:10 Pt doing well - balloon catheter came out a few hours ago, noticing more bloody show. Comfortable with epidural. Indications for Delivery: Elective Vaginal Delivery - Delivery Provider Delivery Physician/CNM: Parul Porter - Labor and Delivery Onset of Contractions Date: 09/21/18 Onset of Contractions Time: 09:00 Onset of Contractions Type: Induced Rupture of Membranes Date: 09/21/18 Rupture of Membranes Time: 19:00 Rupture of Membranes Type: Artificial Amniotic Fluid Color: Clear Dilation Complete Date: 09/21/18 Dilation Complete Time: 21:55 Placenta Delivery Date: 09/21/18 Placenta Delivery Time: 22:56 Total Hours of Labor: 13 Non-surgical Procedures: Amniotomy, Other (Specify) (transcervical Cook Balloon catheter placed, 70mlU, 20 ml v) Laceration: 1st Degree, 2nd Degree Vaginal Sponge Count Correct: Yes Vaginal Needle Count Correct: Yes Vaginal Sweep Performed: Yes EBL: 300 Delivery Events: None Delivery Comment: Pt was complete at 2155, but could not feel contractions. Meconium had been noted in the past hour so the HAND OR MACHINE PASTER, Chrystal Zaman, was in attendance. Pushed with one contraction and delivered at 2248, LOLA presentation, over intact perineum. No nuchal cord. Bulb suctioned on the perineum. No dystocia noted with easy delivery of body and baby was delivered to maternal chest. One minute delay before cord was clamped and cut. Cord blood was obtained. Then the cord was cleansed and cord blood was collected per the cord blood collection kit brought in by the patient. The entire placenta will be sent with the cord blood sample, of which a goo volume was obtained. The placenta delivered spontaneously at 2256. 2nd degree laceration identified and repaired with 3.0 Vicryl in a standard fashion. Fundal massage with removal of clots from the lower uterine segment was performed. Sponge and needle counts correct x 2. Pt and infant left in room, stable, with RN in attendance. - Medications Labor Augmentation/Induction Methods Used: Pitocin, Misoprostol, Valenzuela Bulb Labor Augmentation/Induction Indication: Elective Twining Data JAYE: 09/24/18 Gestational Age: 39 week(s) and 4 day(s) Goode Delivery Date: 09/21/18 Delivery Time: 22:48 ("Jeniffer") Sex of Infant: Female Score (1 Min): 8 Score (5 Min): 9 ICD10 Worksheet Patient Problems: Problems Problem Status Onset Encounter for elective induction of labor Acute Normal spontaneous vaginal delivery Acute Second degree laceration of perineum, delivered, current hospitalization Acute Spontaneous with laceration of vagina Acute term induction Acute - ICD10 Problem Qualifiers (1) Normal spontaneous vaginal delivery (2) Spontaneous with laceration of vagina (3) Second degree laceration of perineum, delivered, current hospitalization
[2018-09-21] MEDS ORDERED: SIMETHICONE 80 MG TAB CHEW PO PRN (23:39)
[2018-09-21] MEDS ORDERED: HYDROCORTISONE 0.5% CREAM TP PRN (23:39)
[2018-09-22] MEDS: ONDANSETRON 4 MG/2 ML VIAL IVP PRN (01:26)
[2018-09-22] MEDS: PENICILLIN G POTASSIUM 2,500,000 UNIT in D5W 150 ML IV SCH (02:17)
[2018-09-22] MEDS: ACETAMINOPHEN 325 MG TAB PO PRN ×3 (06:42→18:41)
[2018-09-22] MEDS: IBUPROFEN 800 MG TAB PO PRN ×2 (08:16→16:05)
[2018-09-22] MEDS: DOCUSATE SODIUM 100 MG CAP PO PRN ×2 (08:16→19:29)
--- NOTE | 2018-09-22 10:53 | OBPP ---
Progress Note Assessment/Plan: Assessment: 38 yo now - PPD1 s/p following elective IOL. Routine cares. support. Likely home tomorrow. Rh pos, Rubella immmune. Hct 35, will start iron. JM Laboratory Tests 09/20/18 09/22/18 06:40 05:30 Hct 37.3 L 35.5 L Subjective/ Course: Barbara is doing great this AM - was able to get a couple hours of sleep. BF going okay, pain controlled. Objective: 09/22/18 05:30 Patient ABO/Rh O POSITIVE 09/20/18 06:40 Temp Pulse Resp BP Pulse Ox 36.6 C 78 16 114/68 95 09/22/18 08:05 09/22/18 08:05 09/22/18 08:05 09/22/18 08:05 09/22/18 08:05
[2018-09-22] MEDS: FERRO-SEQUELS 65 MG TAB.ER PO SCH (13:27)
--- NOTE | 2018-09-22 15:46 | POSTANESTH ---
Post Anesthetic Evaluation Cardiovascular Status: Normal, Stable Respiratory Status: Normal, Stable Level of Consciousness/Mental Status: Can Participate in Eval Pain Control: Adequate, Prn Tx Ordered Nausea/Vomiting Control: Adequate, Prn Tx Ordered Complications Possibly Related to Anesthesia: None Noted (no adverse effects from MARCK, doing well.)
[2018-09-23] MEDS: ACETAMINOPHEN 325 MG TAB PO PRN ×2 (00:17→07:44)
[2018-09-23] MEDS: IBUPROFEN 800 MG TAB PO PRN ×2 (00:17→07:44)
[2018-09-23] MEDS: FERRO-SEQUELS 65 MG TAB.ER PO SCH (07:45)
[2018-09-23 08:06] VITALS: BP 124/81
--- NOTE | 2018-09-23 11:25 | OBGCSDC ---
General Delivery Information - General Info : 3 Para: 2 Abortions: 0 Type: Vaginal L&D Analgesia/Anesthesia Type: Epidural Admission Date: 09/20/18 Labs: Patient ABO/Rh O POSITIVE 09/20/18 06:40 Hct 35.5 % (38.0-47.0) L 09/22/18 05:30 - Hospital Course Antepartum: 09/20/18 12:53 AMA with neg NIPT and normal Level II u/s High cholesterol and familial atherosclerosis - off statin now x 2.5 years; negative Cardio work-up with EKG, stress echo-avoid fluid overload and extremes in BP KHADIJAH II - s/p LEEP Thyroid nodule-followed by Endo with u/s surveillance GERD Anxiety/Depression/ADD - no meds GBS positive Intrapartum: 09/20/18 12:51 Pt is eating lunch. She states ctx's are more painful. Denies any LOF. Good FM noted. 09/20/18 16:00 Pt has been up ambulating and states ctx's are getting more painful-she is breathing through them. 09/20/18 19:36 Pt states ctx's were painful about an hour ago and now are barely there. Denies any LOF. Good FM noted. They have the kit for cord blood collection in the room. 09/20/18 21:37 Pt is no longer feeling any ctx's. 09/21/18 08:34 Pt slept overnight, did not feel contractions despite bein given misoprostil x 2. No LOF. Good FM. 09/21/18 13:40 Pt is quite uncomfortable now with contractions, requesting an epidural. No LOF , though has been having some bloody show. 09/21/18 19:10 Pt doing well - balloon catheter came out a few hours ago, noticing more bloody show. Comfortable with epidural. : Barbara is doing great this AM - was able to get a couple hours of sleep. BF going okay, pain controlled. 09/23/18 11:21 Pt is doing well. She has some soreness and cramping controlled with Ibuprofen. Min lochia, ambulating and voiding without difficulty. Breast feeding is going well. They are ready to d/c home today. She was in the shower , so we discussed her symptoms. However, I was not able to examine her. Vaginal - Delivery Provider Delivery Physician/CNM: Parul Porter - Diagnosis Labor: Induced Rupture of Membranes Type: Artificial Amniotic Fluid Color: Clear Laceration: 1st Degree, 2nd Degree Delivery Events: None - Procedures Non-surgical Procedures: Amniotomy, Other (Specify) (transcervical Cook Balloon catheter placed, 70mlU, 20 ml v) - Delivery Non-surgical Procedures: Amniotomy, Other (Specify) (transcervical Cook Balloon catheter placed, 70mlU, 20 ml v) EBL: 300 [place] Data JAYE: 09/24/18 Gestational Age: 39 week(s) and 6 day(s) Goode Delivery Date: 09/21/18 Delivery Time: 22:48 Sex of : Female [place] Weight (gm): 3450 g Score (1 Min): 8 Score (5 Min): 9 Discharge Information - Discharge Information Prescriptions: Ibuprofen [Motrin (*)] 800 mg PO Q8 PRN #30 tab PRN Reason: Pain, Mild Able To Take Po Iron/Vit C/Docusate [Jasmin-Sequels 65 mg (*)] 1 each PO DAILY #30 tab.er Condition: Good Instruction/Follow Up: Two Weeks, Six Weeks
--- NOTE | 2018-09-23 11:25 | OBPP ---
Progress Note Assessment/Plan: Assessment: 38 y/o PPD #2 s/p elective IOL doing well. Plan: D/c home today with Rx Ibuprofen and Feosol. Call for fever, heavy vaginal bleeding, mastitis symptoms or other concerns. Follow-up @ [facility] 3 and 6 weeks. 09/23/18 11:23 Subjective/ Course: Barbara is doing great this AM - was able to get a couple hours of sleep. BF going okay, pain controlled. 09/23/18 11:21 Pt is doing well. She has some soreness and cramping controlled with Ibuprofen. Min lochia, ambulating and voiding without difficulty. Breast feeding is going well. They are ready to d/c home today. She was in the shower , so we discussed her symptoms. However, I was not able to examine her. Objective: 09/22/18 05:30 Patient ABO/Rh O POSITIVE 09/20/18 06:40 Temp Pulse Resp BP Pulse Ox 36.7 C 79 18 124/81 H 96 09/23/18 08:00 09/23/18 08:00 09/23/18 08:00 09/23/18 08:00 09/23/18 08:00
== END 2018-09-23 14:00 | disposition home or self-care (01) | DRG 807 ==
LOC: FLD 09-20 06:29 → FOB 09-22 01:30
PROVIDERS: ADMIT Hospitalist; ATTEND Hospitalist
PROC: 3E033VJ Introduction of Other Hormone into Peripheral Vein, Percutaneous Approach (ICD-10-PCS; 2018-09-20)
PROC: 10E0XZZ Delivery of Products of Conception, External Approach (ICD-10-PCS; principal; 2018-09-21)
PROC: 10907ZC Drainage of Amniotic Fluid, Therapeutic from Products of Conception, Via Natural or Artificial Opening (ICD-10-PCS; principal; 2018-09-21)
PROC: 0KQM0ZZ Repair Perineum Muscle, Open Approach (ICD-10-PCS; principal; 2018-09-21)
PROC: 0U7C7ZZ Dilation of Cervix, Via Natural or Artificial Opening (ICD-10-PCS; 2018-09-21)
DX: O99.824 Streptococcus B carrier state complicating childbirth (principal); Z37.0 Single live birth; Z3A.39 39 weeks gestation of pregnancy; O70.1 Second degree perineal laceration during delivery
CPT/HCPCS: J2370; J2405; J2540; J2590; J3010; J3105